=== PATIENT | female | born 1980 | race Caucasian/White ===

== ENCOUNTER 2018-12-31 16:04 | Emergency (ER) | payer BC ==
[~2018-12-31] VITALS: Ht 160 cm; Wt 76.7 kg
[2018-12-31 16:05] VITALS: BP_SYST 108
--- NOTE | 2018-12-31 16:05 | NUR ---
Patient triaged and placed in waiting room. VSS and patient appears in no acute distress at this time. Accompanied by SPOUSE, awaiting available bed, and MD notified of need for MSE.
--- NOTE | 2018-12-31 16:58 | NUR ---
BROUGHT BACK TO BED #8 AND REPORT GIVEN TO JARVIS
--- NOTE | 2018-12-31 17:00 | NUR ---
Pt brought by self ,A&Ox4, pt presents to ER with L ankle pain and swelling after she twisted ankle, skin pink and warm, cap refill<3, VSS.
--- NOTE | 2018-12-31 17:19 | NUR ---
DR MARX AT BEDSIDE FOR EVALUATION
[2018-12-31 17:45] VITALS: BP_SYST 108
--- NOTE | 2018-12-31 18:32 | NUR ---
Patient given written and verbal discharge instructions and verbalizes understanding. ER MD discussed with patient the results and treatment provided. Patient in stable condition. ID arm band removed. Rx of Naproxyn given. Patient educated on pain management and to follow up with PMD. Pain Scale 2/10 tolerable for pt. Opportunity for questions provided and answered. Medication side effect fact sheet provided.
== END 2018-12-31 17:45 | disposition home or self-care (01) ==
LOC: SED 16:04
DX: S93.402A Sprain of unspecified ligament of left ankle, initial encounter (principal); R03.0 Elevated blood-pressure reading, without diagnosis of hypertension; W01.0XXA Fall on same level from slipping, tripping and stumbling without subsequent striking against object, initial encounter; Y93.89 Activity, other specified; Y92.89 Other specified places as the place of occurrence of the external cause; Y99.8 Other external cause status
CPT/HCPCS: 99283